=== PATIENT | female | born 1990 | race Caucasian/White ===

== ENCOUNTER 2018-10-13 09:38 | Emergency (ER) | payer OTHER ==
[~2018-10-13] VITALS: Ht 170.2 cm; Wt 83.1 kg
[2018-10-13 09:44] VITALS: BP 138/82
--- NOTE | 2018-10-13 10:00 | NUR ---
PT. ARRIVED TO THE ED W/ C/O SWELLING TO MAYRA FOREARMS WITH INTERMITTENT PAIN TO MAYRA HANDS. OCCURS WITH MOVEMENT. SWELLING WILL OCCUR TO MAYRA ANKLES AFTER WALKING LONG PERIODS. DENIES ANKLE SWELLING AT THIS TIME. DENIES NVD. DENIES PAIN AT THIS TIME. CO PAIN ONLY WITH FLEXION. DENIES ANY FEVERS OR CHILLS. RR EVEN AND UNLABORED. NO SWELLING OR BRUISING NOTED TO FOREARMS OR ANKLES DENIES ANY INJURY AT THIS TIME. ER MD MADE AWARE. SAFETY PRECAUTIONS IMPLEMENTED. WILL CONTINUE TO MONITOR.
--- NOTE | 2018-10-13 11:10 | NUR ---
PT. RESTING COMFORTABLY IN BED, RR EVEN AND UNLABORED. HOB ELEVATED. WILL CONTINUE TO MONITOR.
[2018-10-13 11:37] LABS: BASOPHILS # (AUTO) 0.1 K/uL (0.00-0.22); BASOPHILS % (AUTO) 0.8 % (0.0-2.0); EOSINOPHILS # (AUTO) 0.1 K/uL (0-0.4); EOSINOPHILS % (AUTO) 1.2 % (0.0-4.0); HEMATOCRIT 41.8 % (36-48); HEMOGLOBIN 13.7 g/dL (12.0-16.0); LYMPHOCYTES # (AUTO) 1.8 K/uL (2.5-16.5); LYMPHOCYTES % (AUTO) 23.7 % (20.5-51.1); MEAN CORPUSCULAR HEMOGLOBIN 29 pg (27-31); MEAN CORPUSCULAR HGB CONC 33 g/dL (33-37); MEAN CORPUSCULAR VOLUME 88.9 fL (80-94); MONOCYTES # (AUTO) 0.4 K/uL (0.8-1.0); MONOCYTES % (AUTO) 5.2 % (1.7-9.3); NEUTROPHILS # (AUTO) 5.4 K/uL (1.8-7.7); NEUTROPHILS % (AUTO) 69.1 % (42.2-75.2); PLATELET COUNT (AUTO) 216 K/uL (140-450); RED CELL DISTRIBUTION WIDTH 13.1 % (11.6-13.7); WHITE BLOOD COUNT (AUTO) 7.7 K/uL (4.8-10.8)
[2018-10-13 12:01] LABS: ANION GAP 10.5 (8-16); CARBON DIOXIDE 28.4 mmol/L (21-32); CREATININE 0.7 mg/dL (0.6-1.3); POTASSIUM 4.9 mmol/L (3.5-5.1); TOTAL BILIRUBIN 0.2 mg/dL (0.0-1.0)
[2018-10-13 12:26] VITALS: BP 120/59
--- NOTE | 2018-10-13 12:26 | NUR ---
Patient discharged with v/s stable. Written and verbal after care instructions given and explained. Patient verbalized understanding. Ambulatory with steady gait. All questions addressed prior to discharge. Advised to follow up with PMD 2-3 DAYS .
== END 2018-10-13 12:26 | disposition home or self-care (01) ==
LOC: MED 09:38
DX: M79.89 Other specified soft tissue disorders (principal); R06.00 Dyspnea, unspecified; Z87.442 Personal history of urinary calculi
CPT/HCPCS: 36415; 80053; 81002; 81025; 85025; 99283

== ENCOUNTER 2019-10-25 09:30 | Emergency (ER) | payer OTHER ==
[~2019-10-25] VITALS: Ht 170.2 cm; Wt 95.3 kg
[2019-10-25 09:43] VITALS: BP 140/90
--- NOTE | 2019-10-25 09:45 | NUR ---
TRIAGE COMPLETE. VSS. TO LOBBY AWAITNG BED IN ED.
--- NOTE | 2019-10-25 09:52 | NUR ---
TO ED 06.
--- NOTE | 2019-10-25 10:57 | NUR ---
28 Y/F PRESENTS TO ED FOR LACERATION TO R THUMB, PT REPORTS 5/10 PAIN. PT REPORTS AT 9AM THIS MORNING SHE WAS CUTTING HER MAIL OPEN WITH A LETTER CHUTE MAN AND ACCIDENTLY CUT HER THUMB. LACERATION IS ABOUT 2 INCHES LONG, NO SIGS OF INFECTION NOTED. SLIGHT BLEEDING TO THE SIGHT. TIGHT COMPRESSION BANDAGE APPLIED. CMS INTACT. CAP REFILL < 3 SECONDS. PT ALSO REPORTS TINGLING THAT RADIATES TO THE R ARM. DENIES- PMH NKDA
[2019-10-25] MEDS ORDERED: LIDOCAINE MPF 1% 10 MG/ML VIAL INJ ONE (13:20)
--- NOTE | 2019-10-25 13:41 | NUR ---
LIDOCAINE AND SUTRE SET UP FOR SIMMONS AT BEDSIDE
[2019-10-25] MEDS ORDERED: BACITRACIN OINT 500 UNITS/GM PKT TP ONE (14:27)
--- NOTE | 2019-10-25 14:39 | NUR ---
PLACED BACITRACIN ON PT'S SUTURES ON RIGHT THUMB WITH NON ADH BANDAGE AND WRAP WITH COBAN, THEN PLACED SHORT FINGER SPINT ON PT'S RIGHT THUMB AND WRAP WITH COBAN, CHECKED PMSC'S BEFORE AND AFTER PROCEDURE WITHOUT INCIDENT.
[2019-10-25 14:46] VITALS: BP 140/90
--- NOTE | 2019-10-25 14:47 | NUR ---
Patient discharged with v/s stable. Written and verbal after care instructions given and explained. Patient alert, oriented and verbalized understanding of instructions. Ambulatory with steady gait. All questions addressed prior to discharge. ID band removed. Patient advised to follow up with PMD. Rx of MOTRIN, BACITRACIN given. Patient educated on indication of medication including possible reaction and side effects. Opportunity to ask questions provided and answered.
== END 2019-10-25 14:47 | disposition home or self-care (01) ==
LOC: MED 09:30
DX: S61.011A Laceration without foreign body of right thumb without damage to nail, initial encounter (principal); W26.8XXA Contact with other sharp object(s), not elsewhere classified, initial encounter; Y93.89 Activity, other specified; Y92.89 Other specified places as the place of occurrence of the external cause; Y99.8 Other external cause status
CPT/HCPCS: 12001; 90471; 90715; 99283; J2001

== ENCOUNTER 2020-08-29 07:26 | Emergency (ER) | payer SELFPAY ==
[~2020-08-29] VITALS: Ht 170.2 cm; Wt 90.7 kg
[2020-08-29 07:31] VITALS: BP 115/69
--- NOTE | 2020-08-29 07:34 | NUR ---
TO LOBBY A/W BED AMBULATORY
--- NOTE | 2020-08-29 07:42 | NUR ---
SEEN AND EXAMINED BY BLANCHE WITH ORDER AND CARRIED OUT
[2020-08-29 07:43] VITALS: BP 115/69
--- NOTE | 2020-08-29 07:55 | NUR ---
PATIENT ELOPED FROM FACILITY. DISCHARGE INSTRUCTIONS NOT GIVEN TO PATIENT. DR. APONTE NOTIFIED.
== END 2020-08-29 07:55 | disposition left against medical advice (07) ==
LOC: MED 07:26
DX: M25.511 Pain in right shoulder (principal)
CPT/HCPCS: 99281